=== PATIENT | male | born 1930 | race Caucasian/White ===

== ENCOUNTER 2017-08-14 19:14 | Emergency (ER) | payer OTHER ==
[~2017-08-14] VITALS: Ht 175.3 cm; Wt 68.4 kg
[~2017-08-14 19:14] MED LIST: Azor 10/40 mg PO; BACTRIM,SEPT1 TABLET PO; BELLADONNA-OPI1 EACH PR; Bactrim,Septra DS 80 PO; CATAPRES0.2 MG PO; Casodex PO; Colace PO; Cordarone, Pacerone PO; HYTRIN5 MG PO; Lopressor PO; Lovenox SC; Maalox, Mylanta PO; Mylicon,Mylanta Gas, PO; NovoLOG Pen 3 ml SC; Protonix PO; Rocephin IV; THERAGRAN1 TABLET PO; Tylenol Regular Stre PO
[2017-08-14 20:51] LABS: MCH 30.1 PG (29.0-34.0); MCHC 33.4 G/DL (30.0-36.0); MEAN PLAT.VOLUME 11.2 uM^3 (9.0-12.4); PLATELET COUNT 169 K/uL (156-360); RBC DIS.WIDTH-CV 12.4 % (11.8-14.6); RBC DIS.WIDTH-SD 40.7 % (39-53); RED BLOOD COUNT 3.89 M/uL (4.00-5.50); WHITE BLOOD COUNT 7.8 K/uL (4.1-10.2)
[2017-08-14 21:01] LABS: CHLORIDE 105 mEq/L (99-109); POTASSIUM 4.4 mEq/L (3.7-5.4); SODIUM 140 mEq/L (136-147)
[2017-08-14 21:03] LABS: GLUCOSE 139 mg/dL (70-99)
[2017-08-14 21:04] LABS: ANION GAP 10 MEQ/L (2-14)
[2017-08-14 21:07] LABS: GFR ESTIMATE (CALCULATED) 47 mL/min/
[2017-08-14 21:08] LABS: UREA NITROGEN (BUN) 37 mg/dL (9-23)
[2017-08-14 21:15] LABS: TROP-I INTERPRETATION NEGATIVE; TROPONIN-I < 0.01 ng/mL (0.0-0.30)
[2017-08-15 00:06] LABS: TROP-I INTERPRETATION NEGATIVE; TROPONIN-I < 0.01 ng/mL (0.0-0.30)
[2017-08-15] MEDS ORDERED: ROBAXIN500 MG PO (00:17)
[2017-08-15 00:36] VITALS: BP 163/81
== END 2017-08-15 00:49 | disposition home or self-care (01) ==
LOC: EME 19:14
PROVIDERS: Physician Assistant
DX: M54.2 Cervicalgia (principal); M25.511 Pain in right shoulder; R07.81 Pleurodynia; M47.892 Other spondylosis, cervical region; J84.10 Pulmonary fibrosis, unspecified; I10 Essential (primary) hypertension; Z85.46 Personal history of malignant neoplasm of prostate; Z79.01 Long term (current) use of anticoagulants; Z79.4 Long term (current) use of insulin
CPT/HCPCS: 71020; 72125; 73030; 80048; 84484; 85027; 93005; 99281; 99283; J1885

== ENCOUNTER 2017-12-29 20:20 | Inpatient (IN) | payer OTHER ==
[~2017-12-29] VITALS: Ht 170.2 cm; Wt 71.6 kg
[~2017-12-29 20:20] MED LIST changes: +ROBAXIN500 MG PO
[2017-12-29 20:47] LABS: APPEARANCE TURBID ((CLEAR)); BILIRUBIN NEGATIVE; BLOOD SMALL; COLOR YELLOW ((YELLOW)); GLUCOSE (STRIP) NEGATIVE; KETONES NEGATIVE; LEUKOCYTES LARGE; NITRITE POSITIVE; PROTEIN (STRIP) 100; SPECIFIC GRAVITY 1.013 (1.000-1.030); UROBILINOGEN 0.2 MG/DL (0.2-1.0)
[2017-12-29 21:13] LABS: RED BLOOD CELLS 0-5 /HPF (0-5)
[2017-12-29 21:15] LABS: AMORPHOUS PHOSPHATE CRYSTALS 2+; BACTERIA 2+ /HPF; EPITHELIAL CELLS RARE /HPF; MUCUS RARE /LPF; TRIPLE PHOSPHATE CRYSTALS 4+ /HPF; UCUL ADDED? YES
[2017-12-29 21:31] LABS: HEMATOCRIT 37.1 % (38.0-50.0); HEMOGLOBIN 12.8 G/DL (12.5-16.6); MCH 30.1 PG (29.0-34.0); MCHC 34.5 G/DL (30.0-36.0); MCV 87.3 FL (86-99); PLATELET COUNT 217 K/uL (156-360); RBC DIS.WIDTH-CV 12.1 % (11.8-14.6); RED BLOOD COUNT 4.25 M/uL (4.00-5.50); WHITE BLOOD COUNT 13.1 K/uL (4.1-10.2)
[2017-12-29 21:44] LABS: ALBUMIN 4.4 g/dL (3.2-4.8)
[2017-12-29 21:45] LABS: CHLORIDE 100 mEq/L (99-109); POTASSIUM 4.5 mEq/L (3.7-5.4); SODIUM 135 mEq/L (136-147)
[2017-12-29 21:47] LABS: GLUCOSE 153 mg/dL (70-99); TOTAL PROTEIN 7.5 g/dL (6.4-8.3)
[2017-12-29 21:49] LABS: TOTAL BILIRUBIN 0.5 mg/dL (0.0-1.0)
[2017-12-29 21:50] LABS: ALKALINE PHOSPHATASE 82 IU/L (3-129)
[2017-12-29 21:51] LABS: CREATININE 1.6 mg/dL (0.6-1.3); GFR ESTIMATE (CALCULATED) 43 mL/min/ (58.99-99999)
[2017-12-29 21:52] LABS: AST (GOT) 28 IU/L (2-34); UREA NITROGEN (BUN) 37 mg/dL (9-23)
[2017-12-29 21:53] LABS: ALT (GPT) 13 IU/L (3-49)
[2017-12-30] MEDS ORDERED: AMLODIPINE BESY10 MG PO (00:02)
[2017-12-30] MEDS ORDERED: DIOVAN320 MG PO (00:03)
[2017-12-30 01:45] VITALS: BP 140/70
[2017-12-30 07:54] VITALS: BP 163/70
[2017-12-30 10:41] VITALS: BP 132/59
[2017-12-30 15:19] VITALS: BP 164/72
[2017-12-30 23:25] VITALS: BP 140/69
[2017-12-31 08:00] VITALS: BP 141/66
[2017-12-31 11:18] VITALS: BP 150/65
[2017-12-31 15:53] VITALS: BP 153/68
[2017-12-31] MEDS ORDERED: TYLENOL REGULA325 MG PO (20:30)
== END 2017-12-31 21:43 | disposition home or self-care (01) | DRG 699 ==
LOC: EME 20:20 → EDOF 12-30 → 5EAST 12-30 → ENRESERV 12-30 00:16 → 5EAST 12-30 01:32
DX: T83.511A Infection and inflammatory reaction due to indwelling urethral catheter, initial encounter (principal); T83.091A Other mechanical complication of indwelling urethral catheter, initial encounter; Y84.6 Urinary catheterization as the cause of abnormal reaction of the patient, or of later complication, without mention of misadventure at the time of the procedure; N13.6 Pyonephrosis; I10 Essential (primary) hypertension; M19.90 Unspecified osteoarthritis, unspecified site; N40.1 Benign prostatic hyperplasia with lower urinary tract symptoms; R33.8 Other retention of urine; R97.21 Rising PSA following treatment for malignant neoplasm of prostate; Z85.46 Personal history of malignant neoplasm of prostate; Z88.2 Allergy status to sulfonamides
CPT/HCPCS: 74176; 80053; 81003; 84153; 85027; 87077; 87086 GA; 87186; 99281; 99285; J0696; J7030

== ENCOUNTER 2018-05-03 03:15 | Emergency (ER) | payer OTHER ==
[~2018-05-03] VITALS: Ht 170.2 cm; Wt 67.5 kg
[~2018-05-03 03:15] MED LIST changes: +AMLODIPINE BESY10 MG PO; +DIOVAN320 MG PO; +TYLENOL REGULA325 MG PO
[2018-05-03 04:54] LABS: APPEARANCE CLEAR ((CLEAR)); BILIRUBIN NEGATIVE; BLOOD SMALL; COLOR YELLOW ((YELLOW)); GLUCOSE (STRIP) NEGATIVE; KETONES NEGATIVE; LEUKOCYTES LARGE; NITRITE POSITIVE; PROTEIN (STRIP) 100; SPECIFIC GRAVITY 1.011 (1.000-1.030); UROBILINOGEN 0.2 MG/DL (0.2-1.0)
[2018-05-03 04:59] LABS: BACTERIA 3+ /HPF; EPITHELIAL CELLS NONE SEEN /HPF; MUCUS TRACE /LPF; UCUL ADDED? YES; WHITE BLOOD CELLS 30-40 /HPF (0-5)
[2018-05-03 05:37] LABS: HEMOGLOBIN 11.2 G/DL (12.5-16.6); MCH 30.2 PG (29.0-34.0); MCHC 33.9 G/DL (30.0-36.0); MCV 88.9 FL (86-99); PLATELET COUNT 134 K/uL (156-360); RBC DIS.WIDTH-CV 12.3 % (11.8-14.6); RED BLOOD COUNT 3.71 M/uL (4.00-5.50); WHITE BLOOD COUNT 6.3 K/uL (4.1-10.2)
[2018-05-03 05:55] LABS: CHLORIDE 104 MEQ/L (99-109); POTASSIUM 4.1 MEQ/L (3.7-5.4); SODIUM 141 MEQ/L (136-147)
[2018-05-03 06:01] LABS: CREATININE 1.3 MG/DL (0.6-1.3); GFR ESTIMATE (CALCULATED) 55 mL/min/ (58.99-99999); GLUCOSE 104 mg/dL (70-99); UREA NITROGEN (BUN) 26 mg/dL (9-23)
[2018-05-03] MEDS ORDERED: KEFLEX500 MG PO (06:50)
[2018-05-03 06:54] VITALS: BP 184/73
== END 2018-05-03 06:56 | disposition home or self-care (01) ==
LOC: EME 03:15
PROVIDERS: Emergency Medicine
DX: N30.20 Other chronic cystitis without hematuria (principal); B96.89 Other specified bacterial agents as the cause of diseases classified elsewhere; Z96.0 Presence of urogenital implants; I10 Essential (primary) hypertension; Z85.46 Personal history of malignant neoplasm of prostate; Z90.49 Acquired absence of other specified parts of digestive tract; Z88.2 Allergy status to sulfonamides; Z88.8 Allergy status to other drugs, medicaments and biological substances
CPT/HCPCS: 80048; 81003; 85027; 87077; 87086; 87186; 99281; 99284